=== PATIENT | male | born 1980 | race Caucasian/White ===

== ENCOUNTER 2016-09-28 13:06 | Emergency (ER) | payer SELFPAY ==
[~2016-09-28 13:06] MED LIST: ERYTHROMYCIN O3.5 GM OS; FLEXERIL PO; FLEXERIL10 MG PO; IBUPROFEN800 MG PO; MOBIC PO; MOTRIN600 M1 PO; NO MEDICATIONS; NORCO1 TAB 10/3 PO; ROBAXIN500 MG PO; VOLTAREN50 MG PO; ZOFRAN ODT4 MG PO
== END 2016-09-28 16:08 | disposition home or self-care (01) ==
LOC: SED 13:06
DX: T63.441A Toxic effect of venom of bees, accidental (unintentional), initial encounter (principal); F17.210 Nicotine dependence, cigarettes, uncomplicated; Z90.49 Acquired absence of other specified parts of digestive tract; Y92.9 Unspecified place or not applicable
CPT/HCPCS: 99282